=== PATIENT | male | born 1945 | race Caucasian/White ===

== ENCOUNTER 2019-10-07 09:36 | Outpatient (CLI) | payer MEDICARE, OTHER ==
[2019-10-07] MEDS ORDERED: BUPIVACAINE 0.5% FS SCH (12:00)
[2019-10-07] MEDS ORDERED: TRIAMCINOLONE ACETONIDE FS SCH (12:00)
--- NOTE | 2019-10-07 12:59 | RAD ---
Fluoroscopically guided steroid injection left shoulder: DATE: 10/07/2019 HISTORY: 74-year-old male with chronic left shoulder pain due to osteoarthritis. TECHNIQUE: Signed informed consent obtained. Anterior skin of left shoulder prepped and draped in usual sterile fashion. 25-gauge needle used to apply buffered lidocaine. 22-gauge spinal needle advanced under brief, intermittent fluoroscopy into the intracapsular space at the anterior superior aspect of the g lenohumeral joint. Small amount of Isovue injected to confirm intracapsular position of needle tip. Mixture of 5 mL of 5% bupivacaine, and 1 mL of 40 mg/mL triamcinolone suspension, injected into the i ntracapsular space. Needle removed. Patient tolerated procedure well. No consultations. FINDINGS: Mild-moderate DJD at glenohumeral joint. IMPRESSION: Technically successful steroid injection into the left glenohumeral joint.
[2019-10-07] MEDS ORDERED: Iopamidol 300 61% 30 ML VIAL ONE (13:53)
== END 2019-10-07 09:37 | disposition home or self-care (01) ==
LOC: RAD 09:36
PROVIDERS: ATTEND Family Medicine Sports Medicine
DX: M19.012 Primary osteoarthritis, left shoulder (principal)
CPT/HCPCS: 23350; J3301; J3490; Q9967